=== PATIENT | female | born 1985 | race American Indian/Alaskan Native ===

== ENCOUNTER 2019-05-03 14:36 | Emergency (ER) | payer OTHER ==
--- NOTE | 2019-05-03 15:01 | Event Note ---
ED Screening Note Date of service: 05/04/19 Time: 14:58 ED Screening Note: This is a 33 y.o. F. that presents to the ER with right shoulder pain for 2 days. Patient reports worsening pain yesterday while at work. Denies injury, swelling, or bruising. PMH of asthma She is 6 weeks . This initial assessment/diagnostic orders/clinical plan/treatment(s) is/are subject to change based on patients health status, clinical progression and re- assessment by fellow clinical providers in the ED. Further treatment and workup at subsequent clinical providers discretion. Patient/guardian urged not to elope from the ED as their condition may be serious if not clinically assessed and managed. Initial orders include: ACC for further evaluation.
--- NOTE | 2019-05-03 16:51 | Emergency Department Report ---
ED General Adult HPI - General Chief complaint: Shoulder Injury Stated complaint: R SIDE/SHOULDER PAIN Time Seen by Provider: 05/03/19 14:57 Source: patient Mode of arrival: Ambulatory Limitations: No Limitations - History of Present Illness Initial comments: 33-year-old [place] weeks presents emerge department complaining of right rib, shoulder pain which is worse with range of motion deep breaths and coughs. Pain is responsive to Aleve as she is taking some this morning and states that has helped her discomfort. She reports no hemoptysis, hematemesis, no fever, chills, sweats. No palpitations no syncope. No trauma. -: Gradual Location: chest Radiation: non-radiation Quality: sharp, dull Consistency: constant Improves with: none Worsens with: medication, movement Treatments Prior to Arrival: NSAID - Related Data Previous Rx's Medication Instructions Recorded Last Taken Type Cyclobenzaprine HCl [Flexeril 5mg] 5 mg PO TID #30 tablet 04/27/14 Unknown Rx HYDROcodone/APAP 5-325 [[place] 1 each PO Q6HR PRN #20 tablet 04/27/14 Unknown Rx 5/325] Allergies Allergy/AdvReac Type Severity Reaction Status Date / Time Penicillins Allergy Rash Verified 09/26/13 12:53 ED Review of Systems ROS: Stated complaint: R SIDE/SHOULDER PAIN Other details as noted in HPI Comment: All other systems reviewed and negative ED Past Medical Hx - Past Medical History Previous Medical History?: Yes Hx Asthma: Yes - Social History Smoking Status: Never Smoker Substance Use Type: None - Medications Home Medications: Home Medications Medication Instructions Recorded Confirmed Last Taken Type Cyclobenzaprine HCl [Flexeril 5mg] 5 mg PO TID #30 tablet 04/27/14 Unknown Rx HYDROcodone/APAP 5-325 [[place] 1 each PO Q6HR PRN #20 tablet 04/27/14 Unknown Rx 5/325] ED Physical Exam - General Limitations: No Limitations General appearance: alert, in no apparent distress - Head Head exam: Present: atraumatic, normocephalic - Eye Eye exam: Present: normal appearance, PERRL, EOMI Pupils: Present: normal accommodation - ENT ENT exam: Present: normal exam, normal orophraynx, mucous membranes moist - Neck Neck exam: Present: normal inspection - Respiratory Respiratory exam: Present: normal lung sounds bilaterally, chest wall tenderness. Absent: respiratory distress - Cardiovascular Cardiovascular Exam: Present: regular rate, normal rhythm. Absent: systolic murmur, diastolic murmur, rubs, gallop - GI/Abdominal GI/Abdominal exam: Present: soft, normal bowel sounds - Extremities Exam Extremities exam: Present: normal inspection - Back Exam Back exam: Present: normal inspection - Neurological Exam Neurological exam: Present: alert, oriented X3 - Psychiatric Psychiatric exam: Present: normal affect, normal mood - Skin Skin exam: Present: warm, dry, intact, normal color. Absent: rash ED Medical Decision Making - Medical Decision Making 33-year-old female with right-sided chest pain worse with range of motion and deep within the area of the ribs. Pain is reproducible with range of motion, is responsive to Aleve. However, she is weeks . I advised her of the dangers of utilizing Aleve don't early . Also advisor that we will treat this conservatively and should she continue to have any pain which continues to progress which point in time entertain doing an x-ray to rule out pneumonia's,,, atelectasis. No trauma has been involved. Existing this pain and she does not have any nausea or vomiting to suggest gallbladder pathology. Critical care attestation.: If time is entered above; I have spent that time in minutes in the direct care of this critically ill patient, excluding procedure time. ED Disposition Clinical Impression: Chest pain Disposition: DC-01 TO HOME OR SELFCARE Is pt being admited?: No Does the pt Need Aspirin: No Condition: Stable Instructions: Chest Pain (ED), Costochondritis (ED) Referrals: [facility] [Provider Group] - 3-5 Days
== END 2019-05-03 17:38 | disposition home or self-care (01) ==
LOC: ED 14:36
DX: R07.89 Other chest pain (principal); J45.909 Unspecified asthma, uncomplicated; Z88.0 Allergy status to penicillin
CPT/HCPCS: 99282